=== PATIENT | male | born 1995 | race Caucasian/White ===

== ENCOUNTER 2017-09-21 16:05 | Emergency (ER) | payer OTHER ==
[~2017-09-21] VITALS: Ht 172.7 cm; Wt 68.0 kg
[~2017-09-21 16:05] MED LIST: AMIT25 PO; CEPH500 PO; CYCL10 PO; DIAZ5 PO; HYDACE5325 PO; Hydrocodone-Ap1 EA23 PO; IBUP600 PO; IBUP800 PO; KETO30I IM; METPRE4DP PO; Mobic15 MG PO; NAPR220 PO; Naproxen250 MG PO; Norco 5-325 Ta1 EACH PO; PRED10 PO; PROM25 PO; Percocet 10-321 EACH PO; Percocet 5-3251 EACH PO; Prednisone10 MG PO; TRAM50 PO; Triamcinolone A15 GM TOP; ULTRA-LIGHT RO1 EACH XX; Wheelchair1 EACH XX
[2017-09-21 18:02] LABS: BASOPHILS ABSOLUTE AUTO 0.05 K/mm3 (0.00-0.23); BASOPHILS PERCENT AUTO 0 % (0-2); EOSINOPHILS ABSOLUTE AUTO 0.11 K/mm3 (0.00-0.68); EOSINOPHILS PERCENT AUTO 1 % (0-6); Hematocrit 45.8 % (37.0-53.0); Hemoglobin 16.3 g/dL (13.5-17.5); IMMATURE GRAN ABSOLUTE AUTO 0.07 K/mm3 (0.00-0.10); IMMATURE GRAN PERCENT AUTO 0 % (0-1); LYMPHOCYTES ABSOLUTE AUTO 3.01 K/mm3 (0.84-5.20); LYMPHOCYTES PERCENT AUTO 19 % (21-46); MONOCYTES ABSOLUTE AUTO 1.28 K/mm3 (0.16-1.47); MONOCYTES PERCENT AUTO 8 % (4-13); Mean Corpuscular HGB Conc 35.6 g/dL (31.5-36.5); Mean Corpuscular Volume 84 fL (80-100); Mean Platelet Volume 11.6 fL (9.1-12.4); NEUTROPHILS ABSOLUTE AUTO 11.48 K/mm3 (1.96-9.15); NEUTROPHILS PERCENT AUTO 72 % (41-73); Platelet Count 210 K/mm3 (150-400); RDW Coefficient Variation 11.7 % (11.7-14.2); RDW Standard Deviation 35.2 fL (35.1-46.3); Red Blood Cell Count 5.43 M/mm3 (4.30-5.90)
[2017-09-21 18:03] LABS: Source, Urine Catheter
[2017-09-21 18:06] LABS: Appearance, Urine Cloudy (Clear); Bilirubin, Urine Neg (Neg); Blood, Urine 5+ (Neg); Color, Urine Yellow (P-Yellow); Glucose Qualitative, Urine Neg (Neg); Ketones, Urine 4+ (Neg); Leukocyte Esterase, Urine 3+ (Neg); Nitrite, Urine Pos (Neg); Protein, Urine 3+ (Neg); Specific Gravity, Urine 1.015 (1.003-1.022); Urobilinogen, Urine NORM (Normal)
[2017-09-21 18:16] LABS: Anion Gap 10 mmol/L (6-16); Blood Urea Nitrogen 11 mg/dL (8-24); Bun/Creatinine Ratio 14.3 (12.0-20.0); CO2, Blood 24 mmol/L (21-32); Calcium, Blood 9.7 mg/dL (8.5-10.1); Chloride, Blood 109 mmol/L (98-108); Creatinine, Blood 0.77 mg/dL (0.60-1.20); Glomerular Filtration Rate >60 (60-); Glucose, Blood 91 mg/dL (70-99); Potassium, Blood 3.6 mmol/L (3.5-5.5); Sodium, Blood 143 mmol/L (136-145)
[2017-09-21 18:18] LABS: Red Blood Cells, Urine TNTC /hpf (0-2); Squamous Epithelial Cells Not Seen /hpf (Few); White Blood Cells, Urine TNTC /hpf (0-5)
[2017-09-21 18:19] LABS: Bacteria Many /hpf
[2017-09-21] MEDS ORDERED: Cipro500 MG PO (20:51)
[2017-09-21] MEDS ORDERED: Norco 5-325 Ta1 EACH PO (20:51)
== END 2017-09-21 21:36 | disposition home or self-care (01) ==
LOC: ER 16:05
PROVIDERS: Emergency Medicine
DX: A41.9 Sepsis, unspecified organism (principal); N39.0 Urinary tract infection, site not specified; E87.2 Acidosis; Z88.5 Allergy status to narcotic agent; Z91.040 Latex allergy status; Z88.8 Allergy status to other drugs, medicaments and biological substances; Z79.891 Long term (current) use of opiate analgesic; Z87.891 Personal history of nicotine dependence
CPT/HCPCS: 36415; 51798; 80048; 81001; 83605; 85025; 87077; 87086; 87186; J0696; J1885; J3010; J7030

== ENCOUNTER 2018-10-29 09:55 | Emergency (ER) | payer OTHER ==
[~2018-10-29] VITALS: Ht 172.7 cm; Wt 70.3 kg
[~2018-10-29 09:55] MED LIST changes: +Cipro500 MG PO
[2018-10-29 10:31] LABS: BASOPHILS ABSOLUTE AUTO 0.05 K/mm3 (0.00-0.23); BASOPHILS PERCENT AUTO 1 % (0-2); EOSINOPHILS PERCENT AUTO 1 % (0-6); Hematocrit 44.8 % (37.0-53.0); Hemoglobin 15.5 g/dL (13.5-17.5); IMMATURE GRAN ABSOLUTE AUTO 0.03 K/mm3 (0.00-0.10); IMMATURE GRAN PERCENT AUTO 0 % (0-1); LYMPHOCYTES ABSOLUTE AUTO 2.22 K/mm3 (0.84-5.20); LYMPHOCYTES PERCENT AUTO 28 % (21-46); MONOCYTES ABSOLUTE AUTO 0.56 K/mm3 (0.16-1.47); MONOCYTES PERCENT AUTO 7 % (4-13); Mean Corpuscular HGB 30.3 pg (26.0-34.0); Mean Corpuscular HGB Conc 34.6 g/dL (31.5-36.5); Mean Corpuscular Volume 88 fL (80-100); Mean Platelet Volume 11.9 fL (9.1-12.4); NEUTROPHILS ABSOLUTE AUTO 4.99 K/mm3 (1.96-9.15); NEUTROPHILS PERCENT AUTO 63 % (41-73); Platelet Count 167 K/mm3 (150-400); RDW Coefficient Variation 11.5 % (11.7-14.2); RDW Standard Deviation 37.1 fL (35.1-46.3); Red Blood Cell Count 5.11 M/mm3 (4.30-5.90); White Blood Cell Count 7.95 K/mm3 (4.00-11.30)
[2018-10-29 10:54] LABS: Troponin I <0.015 ng/mL (0.000-0.040)
[2018-10-29 10:58] LABS: Alanine Aminotransfer (ALT/SGP 17 U/L (12-78); Albumin, Blood 4.6 g/dL (3.4-5.0); Albumin/Globulin Ratio 1.4 (0.8-1.8); Alk Phos 78 U/L (50-136); Anion Gap 6 mmol/L (6-16); Aspartate Aminotrans (AST/SGOT 12 U/L (12-37); Bilirubin, Total 0.6 mg/dL (0.1-1.0); Blood Urea Nitrogen 14 mg/dL (8-24); Bun/Creatinine Ratio 17.5 (12.0-20.0); CO2, Blood 25 mmol/L (21-32); Calcium, Blood 9.3 mg/dL (8.5-10.1); Chloride, Blood 112 mmol/L (98-108); Globulin, Blood 3.2 g/dL (2.2-4.0); Glomerular Filtration Rate >60 (60-); Glucose, Blood 117 mg/dL (70-99); Potassium, Blood 3.5 mmol/L (3.5-5.5); Sodium, Blood 143 mmol/L (136-145); Total Protein, Blood 7.8 g/dL (6.4-8.2)
[2018-10-29] MEDS ORDERED: Pepcid20 MG PO (12:07)
[2018-10-29] MEDS ORDERED: Percocet 5-3251 EACH PO (12:07)
== END 2018-10-29 12:24 | disposition home or self-care (01) ==
LOC: ER 09:55
PROVIDERS: Emergency Medicine
DX: R07.9 Chest pain, unspecified (principal); M79.671 Pain in right foot; G89.29 Other chronic pain; Z88.5 Allergy status to narcotic agent; Z91.040 Latex allergy status; Z88.8 Allergy status to other drugs, medicaments and biological substances; Z87.891 Personal history of nicotine dependence
CPT/HCPCS: 36415; 71046; 73630; 80053; 83690; 83880; 84484; 85025; 93005; 93010; 96360; 99285-25; J7030